=== PATIENT | male | born 1965 | race African-American/Black ===

== ENCOUNTER 2023-12-16 13:48 | Emergency (ER) | payer OTHER, SELFPAY ==
--- NOTE | ~2023-12-16 | XR_ITS ---
EXAMINATION: XR CHEST CLINICAL INFORMATION: Infectious workup, hypotension COMPARISON: None available. TECHNIQUE: 2 views of the chest were obtained. FINDINGS: The cardiac silhouette is normal. There is mild diffuse bronchial wall thickening. There are no areas of consolidation. There are no pleural effusions or pneumothoraces. The bones and soft tissues are unremarkable for the patient's age. XR/XR chest 2V IMPRESSION: Bronchial wall thickening may be infectious/inflammatory in etiology. Electronically signed by: Tatum Lara MD 12/16/2023 07:18 PM EDT RP
--- NOTE | 2023-12-16 14:51 | ECG_ITS ---
Test Reason : chest tightness Blood Pressure : / mmHG Vent. Rate : 112 BPM Atrial Rate : 112 BPM P-R Int : 192 ms QRS Dur : 076 ms QT Int : 312 ms P-R-T Axes : 086 038 076 degrees QTc Int : 425 ms Sinus tachycardia Biatrial enlargement Borderline ECG No previous ECGs available Referred By: Chandler Wilhelm Electronically Signed By:ALTAGRACIA SHERMAN
--- NOTE | 2023-12-16 15:06 | ECG_ITS ---
Test Reason : HTN Blood Pressure : / mmHG Vent. Rate : 107 BPM Atrial Rate : 107 BPM P-R Int : 204 ms QRS Dur : 074 ms QT Int : 332 ms P-R-T Axes : 080 029 066 degrees QTc Int : 443 ms Sinus tachycardia Otherwise normal ECG When compared with ECG of 16-DEC-2023 14:49, No significant change was found Referred By: Reji Orourke Electronically Signed By:ALTAGRACIA SHERMAN
[2023-12-16 15:07] VITALS: BP 148/82; PULSE 110; RESP 18; TEMP 37; BMI 22.8
[2023-12-16 16:02] VITALS: BP 143/80; PULSE 105; RESP 12; TEMP 37; O2SAT 100
[2023-12-16 16:24] LABS: Alanine Aminotransferase 50 U/L (0-40); Albumin Level 4.7 g/dL (3.5-5.0); Alkaline Phosphatase 61 U/L (39-117); Anion Gap 29 (12-20); Aspartate Amino Transferase 67 U/L (5-37); Bilirubin Total 0.9 mg/dL (0.0-1.0); Blood Urea Nitrogen 15 mg/dL (9-16); Calcium 9.8 mg/dL (8.4-10.2); Carbon Dioxide 22 mmol/L (22-29); Chloride 76 mmol/L (96-108); Creatinine Clr Calc Pharmacy 69.9; Estimated Glomerular Filt Rate > 60; Glucose Random 91 mg/dL (60-115); Magnesium 1.3 mg/dL (1.6-2.6); Potassium 3.2 mmol/L (3.3-5.1); Sodium 124 mmol/L (135-145); Total Protein 7.7 g/dL (6.5-8.0); Troponin-I High Sensitivity 3.7 ng/L (<3.5-35.0)
[2023-12-16 16:26] LABS: Appearance Urine Clear; Color Urine Yellow; Glucose Urine UA Negative (Negative); Leukocyte Esterase Urine Negative (Negative); Nitrite Urine Negative (Negative); PH 5.5 (5.0-9.0); Specific Gravity - Urine <= 1.005 (1.005-1.025); Urine Blood Negative (Negative); Urine Ketones 40 mg/dL (Negative); Urine Protein Negative (Neg-Trace)
[2023-12-16 16:43] LABS: Basophils Percent Auto 0.4 % (0-2); Hematocrit 34.9 % (42.0-52.0); Hemoglobin 13.1 g/dl (14.0-18.0); Imm Gran Abs Auto 0.02 X10*3/uL (0.00-0.03); Imm Gran Pct Auto 0.4 % (0.0-0.4); Lymphocytes Absolute Auto 0.2 X10*3/uL (1.2-4.9); Lymphocytes Percent Auto 3.1 % (20-40); MANUAL DIFF FLAG SCAN; Mean Corpuscular HGB Conc 37.5 g/dl (31.0-36.0); Mean Corpuscular Volume 101.2 fL (80.0-98.0); Mean Platelet Volume 8.4 fL (9.4-12.4); Monocytes Absolute Auto 0.3 X10*3/uL (0.1-1.2); Monocytes Percent Auto 5.9 % (2-11); Neutrophils Absolute Auto 4.6 x10*3/uL (2.0-8.3); Neutrophils Percent Auto 90.2 % (45-73); Platelet Count 165 X10*3/uL (160-400); Red Blood Count 3.45 X10*6/uL (4.60-5.80); Red Cell Distribution Width 11.7 % (11.0-16.0); SCAN SMEAR FLAG 1; White Blood Count 5.1 X10*3/uL (4.8-10.8)
[2023-12-16] MEDS: Magnesium Sulfate/H2O 2 GM/50 ML PIGGYBACK IV (16:53)
[2023-12-16 16:57] LABS: Influenza A PCR NEGATIVE (Negative); Influenza B PCR NEGATIVE (Negative); Resp Syncy Virus RNA Qual PCR NEGATIVE (Negative); SARS COV2 PCR INHOUSE NEGATIVE (Negative)
[2023-12-16 17:02] LABS: SLIDE REVIEW VERIFIED
[2023-12-16 17:04] LABS: Erythrocyte Sedimentation Rate 11 MM/HR (0-15)
--- NOTE | 2023-12-16 17:08 | ED_ITS ---
HPI - General Adult General Chief complaint: General Medical Stated complaint: low bp-chest tightness Time Seen by Provider: 12/16/23 16:02 History of Present Illness ED Provider: Sharad HPI narrative: 58-year-old male with past medical history of lung cancer presenting for hypotension. Patient states that he woke up this morning and he felt took his blood pressure and found it to be 70s/50s and he subsequently experienced a sensation of palpitations. He denies chest pain, shortness of breath, diaphoresis, recent illness, fevers, chills, abdominal pain, nausea, vomiting, urinary symptoms. He states he has never experienced this in the past. He denies recent travel and has not had any recent hospitalization. Related Data Allergies Allergy/AdvReac Type Severity Reaction Status Date / Time No Known Allergies Allergy Verified 12/16/23 15:10 Review of Systems 2 Review of Systems: Patient endorses hypotension and palpitation Yes all other systems are reviewed and are negative [facility] Past Medical History Attestation statement: The following information was validated with the patient. [facility] Narrative: Lung cancer Social History Social History Smoked in Last 30 Days: No Use of substances other than those prescribed or required for medical reasons: No Advance Directives: No Advance Directives Information Provided: No Physical Exam ED Vital Signs: Vital Signs - 24 hr 12/16/23 15:07 12/16/23 16:02 12/16/23 18:46 Temperature 98.6 F 98.6 F 98.3 F Pulse Rate 110 H 105 H 98 Respiratory Rate 18 12 16 Blood Pressure 148/82 H 143/80 H 139/75 Pulse Oximetry 100 100 Oxygen Delivery Method Room Air Room Air BMI result Body Mass Index 22.8 Medications Administered Discontinued Medications Generic Name Dose Route Start Last Admin Trade Name Freq PRN Reason Stop Dose Admin Magnesium Sulfate 2 gm in 50 mls @ 25 mls/hr 12/16/23 16:23 12/16/23 18:54 Magnesium Sulfate/H2o IV 12/16/23 18:22 Infused ONCE ONE Infusion Sodium Chloride 1,000 mls @ 999 mls/hr 12/16/23 17:45 12/16/23 19:08 Ns IV 12/16/23 18:45 Infused .Q1H1M WALLY Infusion Potassium Chloride 10 meq in 100 mls @ 100 mls/hr 12/16/23 17:33 12/16/23 19:08 Potassium Chloride/H20 IV 12/16/23 18:32 Infused ONCE ONE Infusion Medical Decision Making Medical Decision Making MDM Narrative: This is a 58-year-old male with past medical history of lung cancer presenting for hypotension and palpitations. I am concerned for the following; electrolyte/metabolic disturbance, arrhythmia, underlying infection -I am also considering PE -less likely ACS -labs and imaging studies ordered -no signs of ischemia seen on EKG -labs notable for normal white count, H&H within normal limits, hyponatremia, hypokalemia, hypomagnesemia, elevated lactate, 1st troponin of 3.7 -I discussed lab results with patient and recommended staying for IV fluids and repletion of potassium and magnesium. Patient was reluctant to staying however eventually agreed. -1L NS ordered and labs repeated with improvement in heart rate, creatinine and sodium -patient threatening to leave multiple times. I explained that his labs have improved however I would like to repeat his troponin as well. Patient declined to any additional lab work and threatened to pull out his IV. I explained to him the risks of leaving without complete workup which he understood however he states that he has been in this hospital for 7 hours and wants to leave. I discharged the patient per his request Lab Data 12/16/23 15:54 12/16/23 20:01 Labs: Lab Results 12/16/23 12/16/23 12/16/23 Range/Units 15:54 16:07 16:32 WBC 5.1 (4.8-10.8) X10*3/uL RBC 3.45 L (4.60-5.80) X10*6/uL Hgb 13.1 L (14.0-18.0) g/dl Hct 34.9 L (42.0-52.0) % MCV 101.2 H (80.0-98.0) fL MCH 38.0 H (27.0-33.0) pg MCHC 37.5 H (31.0-36.0) g/dl RDW 11.7 (11.0-16.0) % Plt Count 165 (160-400) X10*3/uL MPV 8.4 L (9.4-12.4) fL Immature Gran % (Auto) 0.4 (0.0-0.4) % Neut % (Auto) 90.2 H (45-73) % Lymph % (Auto) 3.1 L (20-40) % [place] % (Auto) 5.9 (2-11) % Eos % (Auto) 0.0 (0-4) % Baso % (Auto) 0.4 (0-2) % Lymph # (Auto) 0.2 L (1.2-4.9) X10*3/uL [place] # (Auto) 0.3 (0.1-1.2) X10*3/uL Eos # (Auto) 0.0 (0.0-0.4) X10*3/uL Baso # (Auto) 0.0 (0.0-0.2) X10*3/uL Abs Immat Gran (auto) 0.02 (0.00-0.03) X10*3/uL Absolute Neuts (auto) 4.6 (2.0-8.3) x10*3/uL Absolute Nucleated RBC 0.000 (0.0-0.012) X10*3/uL Nucleated RBC % (auto) 0.0 (0.0-0.2) /100WBC Smear Tech's Comments VERIFIED ESR 11 (0-15) MM/HR Hold Purple Top SEE NOTE Sodium 124 L (135-145) mmol/L Potassium 3.2 L (3.3-5.1) mmol/L Chloride 76 L (96-108) mmol/L Carbon Dioxide 22 (22-29) mmol/L Anion Gap 29 H (12-20) BUN 15 (9-16) mg/dL Creatinine 1.18 (0.5-1.4) mg/dL Estim Creat Clear Calc 69.9 Estimated GFR > 60 Random Glucose 91 (60-115) mg/dL Lactic Acid 3.0 H* (0.5-2.0) mmol/L Lactic Acid F/U @ 2Hr (0.5-2.0) mmol/L Calcium 9.8 (8.4-10.2) mg/dL Phosphorus 3.8 (2.7-4.5) mg/dL Magnesium 1.3 L* (1.6-2.6) mg/dL Total Bilirubin 0.9 (0.0-1.0) mg/dL AST 67 H (5-37) U/L ALT 50 H (0-40) U/L Alkaline Phosphatase 61 (39-117) U/L Troponin I High Sens 3.7 (<3.5-35.0) ng/L B-Natriuretic Peptide 50 (<100) pg/mL Total Protein 7.7 (6.5-8.0) g/dL Albumin 4.7 (3.5-5.0) g/dL Urine Color Yellow Urine Appearance Clear Urine pH 5.5 (5.0-9.0) Ur Specific [place] <= 1.005 (1.005-1.025) Urine Protein Negative (Neg-Trace) mg/dL Urine Glucose (UA) Negative (Negative) mg/dL Urine Ketones 40 (Negative) mg/dL Urine Blood Negative (Negative) Urine Nitrite Negative (Negative) Ur Leukocyte Esterase Negative (Negative) Influenza Type A (PCR) NEGATIVE (Negative) Influenza Type B (PCR) NEGATIVE (Negative) RSV RNA Qual (PCR) NEGATIVE (Negative) SARS-CoV-2 RNA (RT-PCR) NEGATIVE (Negative) 12/16/23 Range/Units 20:01 WBC (4.8-10.8) X10*3/uL RBC (4.60-5.80) X10*6/uL Hgb (14.0-18.0) g/dl Hct (42.0-52.0) % MCV (80.0-98.0) fL MCH (27.0-33.0) pg MCHC (31.0-36.0) g/dl RDW (11.0-16.0) % Plt Count (160-400) X10*3/uL MPV (9.4-12.4) fL Immature Gran % (Auto) (0.0-0.4) % Neut % (Auto) (45-73) % Lymph % (Auto) (20-40) % [place] % (Auto) (2-11) % Eos % (Auto) (0-4) % Baso % (Auto) (0-2) % Lymph # (Auto) (1.2-4.9) X10*3/uL [place] # (Auto) (0.1-1.2) X10*3/uL Eos # (Auto) (0.0-0.4) X10*3/uL Baso # (Auto) (0.0-0.2) X10*3/uL Abs Immat Gran (auto) (0.00-0.03) X10*3/uL Absolute Neuts (auto) (2.0-8.3) x10*3/uL Absolute Nucleated RBC (0.0-0.012) X10*3/uL Nucleated RBC % (auto) (0.0-0.2) /100WBC Smear Tech's Comments ESR (0-15) MM/HR Hold Purple Top Sodium 127 L (135-145) mmol/L Potassium 3.6 (3.3-5.1) mmol/L Chloride 81 L (96-108) mmol/L Carbon Dioxide 18 L (22-29) mmol/L Anion Gap 32 H (12-20) BUN 12 (9-16) mg/dL Creatinine 0.94 (0.5-1.4) mg/dL Estim Creat Clear Calc 87.8 Estimated GFR > 60 Random Glucose 63 (60-115) mg/dL Lactic Acid (0.5-2.0) mmol/L Lactic Acid F/U @ 2Hr 2.8 H* (0.5-2.0) mmol/L Calcium 9.8 (8.4-10.2) mg/dL Phosphorus (2.7-4.5) mg/dL Magnesium (1.6-2.6) mg/dL Total Bilirubin (0.0-1.0) mg/dL AST (5-37) U/L ALT (0-40) U/L Alkaline Phosphatase (39-117) U/L Troponin I High Sens (<3.5-35.0) ng/L B-Natriuretic Peptide (<100) pg/mL Total Protein (6.5-8.0) g/dL Albumin (3.5-5.0) g/dL Urine Color Urine Appearance Urine pH (5.0-9.0) Ur Specific [place] (1.005-1.025) Urine Protein (Neg-Trace) mg/dL Urine Glucose (UA) (Negative) mg/dL Urine Ketones (Negative) mg/dL Urine Blood (Negative) Urine Nitrite (Negative) Ur Leukocyte Esterase (Negative) Influenza Type A (PCR) (Negative) Influenza Type B (PCR) (Negative) RSV RNA Qual (PCR) (Negative) SARS-CoV-2 RNA (RT-PCR) (Negative) Discharge Plan Discharge Clinical Impression: Acute hyponatremia, LIZ (acute kidney injury), Hypomagnesemia Patient Disposition: Home, Self-Care Additional Instructions: Please follow up with your primary care provider in the next 24-48 hours as you should have repeat lab work. Please make sure to remain well hydrated Please return to the emergency department if you develop any new or worsening symptoms Print Language: [place]se
--- NOTE | 2023-12-16 17:25 | PC.NURSE ---
Pt presents to ED from home, reports he took his BP this morning (checks it daily and also felt off ) and found it to be low (70s systolic). [facility] for [facility]. Denies any pain, SOB, N/V/D, fevers, recent illnesses. 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 Alert and oriented, breathing even and unlabored, skin warm and dry. Pt does report daily alcohol use at night, hard liquor, multiple drinks, but no hx of alcohol withdrawals.
[2023-12-16 17:31] LABS: B Type Natriuretic Peptide 50 pg/mL (<100)
--- NOTE | 2023-12-16 17:51 | PC.NURSE ---
Pt telling tech and RN that he wants to leave, RN tried to explain importance of treatment and current condition. Pt still adamant. Provider at bedside speaking to pt
[2023-12-16] MEDS: 0.9 % Sodium Chloride 1,000 ML 999 ML IV (17:55)
[2023-12-16] MEDS: Potassium Chloride/H20 10 MEQ/100 ML PIGGYBACK 100 MEQ IV (17:55)
--- NOTE | 2023-12-16 18:02 | PC.NURSE ---
Pt agreeable to get IV fluids and meds.
[2023-12-16 18:35] LABS: Reflex Lactate? Lactic Acid Added
[2023-12-16 18:46] VITALS: BP 139/75; PULSE 98; RESP 16; TEMP 36.8; O2SAT 100
--- NOTE | 2023-12-16 19:06 | PC.NURSE ---
This RN assumed pt care @ 1900. Pt a&ox4, no signs of distress. Pt denies pain at this time. Plan of care ongoing.
--- NOTE | 2023-12-16 19:07 | PC.NURSE ---
This RN walked into pts room and fluids complete. Plan of care ongoing.
[2023-12-16 19:25] LABS: Phosphorus 3.8 mg/dL (2.7-4.5)
--- NOTE | 2023-12-16 20:00 | PC.NURSE ---
Per provider turned down 02 to see if pt can be weened off, provider believes pt not on 02 at baseline Pt with xray and 02 dropped to 74% Pt suctioned and 02 turned back on 2l n/c, pt now sat @ 96% Pt reports he is on 02 at baseline Plan of care ongoing.
[2023-12-16 20:26] LABS: ~Lactic Acid-LAB USE ONLY 2.8 mmol/L (0.5-2.0)
[2023-12-16 20:27] LABS: Anion Gap 32 (12-20); Blood Urea Nitrogen 12 mg/dL (9-16); Calcium 9.8 mg/dL (8.4-10.2); Carbon Dioxide 18 mmol/L (22-29); Chloride 81 mmol/L (96-108); Creatinine Clr Calc Pharmacy 87.8; Estimated Glomerular Filt Rate > 60; Glucose Random 63 mg/dL (60-115); Potassium 3.6 mmol/L (3.3-5.1); Sodium 127 mmol/L (135-145)
--- NOTE | 2023-12-16 20:44 | PC.NURSE ---
Per provider would like another trop done and pt does not have to wait for results. This RN called lab and spoke with Tera regarding trop being added to previous labs sent down, per tera that can be done. Provider Jono advised. Plan of care ongoing.
[2023-12-16 20:55] VITALS: BP 139/90; PULSE 121; RESP 20; TEMP 37.1; O2SAT 98
--- NOTE | 2023-12-16 20:57 | PC.NURSE ---
Pt agitated and states I'm ready to pull this fucking IV out of my arm. This RN redirected pt and advised he was being d/c shortly Plan of care ongoing.
[2023-12-16 21:05] LABS: Troponin-I High Sensitivity 5.4 ng/L (<3.5-35.0)
[2023-12-16 21:08] VITALS: BP 139/90; PULSE 121; RESP 20; TEMP 37.1; O2SAT 98
[2023-12-16 22:07] LABS: Reflex Lactate? 2 Y
== END 2023-12-16 21:12 | disposition home or self-care (01) ==
PROVIDERS: Physician Assistant Medical; Emergency Provider Student in an Organized Health Care Education/Training Program; PCP Physician Assistant Medical
DX: I95.9 Hypotension, unspecified (principal); E87.1 Hypo-osmolality and hyponatremia; E83.42 Hypomagnesemia; N17.9 Acute kidney failure, unspecified; Z85.118 Personal history of other malignant neoplasm of bronchus and lung; Z03.818 Encounter for observation for suspected exposure to other biological agents ruled out
CPT/HCPCS: 0241U; 36415; 71046; 80048; 80053; 81003; 83605; 83735; 83880; 84100; 84484; 85025; 85652; 93005; 96365; 96366; 96375; 99284; 99285; J3475; J3480

== ENCOUNTER → 2023-12-16 14:51 | Outpatient (BNV) | payer OTHER, SELFPAY | PROVIDERS: Emergency Provider Student in an Organized Health Care Education/Training Program; PCP Physician Assistant Medical; Visit Provider Internal Medicine | DX: R00.0 Tachycardia, unspecified (principal) | CPT/HCPCS: 93010 ==

== ENCOUNTER 2024-07-17 16:56 | Emergency (ER) | payer OTHER, SELFPAY ==
--- NOTE | 2024-07-17 16:58 | ED_ITS ---
HPI - General Adult General Chief complaint: General Medical Stated complaint: wants to check vitals his BP machine doesnt work Time Seen by Provider: 07/17/24 17:12 History of Present Illness ED Provider: Evert Hart MD HPI narrative: 59-year-old male who presents for subjective concern of elevated blood pressures took at home 180 systolic also notes alcohol use disorder does not report that he is here for help with this or concerned about withdrawal or detox. No abdominal pain Related Data Previous Rx's ?Medication ?Instructions ?Recorded magnesium oxide 500 mg capsule 500 mg PO BID 4 days #8 caps 07/17/24 Allergies Allergy/AdvReac Type Severity Reaction Status Date / Time No Known Allergies Allergy Verified 07/17/24 17:05 [facility] Social History Social History Alcohol intake: current Alcohol intake frequency: a few times a week Alcohol type: beer and hard liquor Smoked in Last 30 Days: No Use of substances other than those prescribed or required for medical reasons: No Advance Directives: No Advance Directives Information Provided: Yes Do you have a plan to hurt others: No Plan Physical Exam ED Vital Signs: Vital Signs - 24 hr 07/17/24 17:01 07/17/24 17:25 Temperature 98.0 F 99.2 F Pulse Rate 129 H 109 H Respiratory Rate 18 17 Blood Pressure 186/111 H 167/99 H Pulse Oximetry 99 98 Oxygen Delivery Method Room Air Room Air BMI result Body Mass Index 22.7 Const Other: EXAM: Gen: Alert, awake, well appearing, well hydrated. Slightly anxious Head: Atraumatic Eyes: Anicteric, Normal conjunctiva. ENT: Moist mucosa, no pallor. ? Neck: Supple. Respiratory: Breathing comfortably, No distress.Clear to auscultation bilaterally, symmetric chest expansion, No wheeze, rales, ronchi. Cardiovascular: Slightly rapid and rhythm. No murmurs or rub. Well perfused periphery, warm extremities. No edema. ? Abdominal: No FOCAL TENDERNESS. Soft, no objective distension. No palpable masses or obvious organomegaly. ?No guarding, no rebound tenderness or other peritoneal findings. : No flank tenderness. Neuro: Alert. Gross movement of all extremities intact. ? Psych: Calm. Cooperative. MSK: No grossly visible deformity. Vital signs: See flowsheet Course Course Course Narrative: RME performed by Laura Blank PA-C. Patient is a 59 year old assigned male at presenting to the emergency department with elevated blood pressure and alcohol use. Patient states that he has been off of his amlodipine for a year and he plans on seeing his doctor tomorrow to talk about it. Patient states that he has been drinking a decent amount of alcohol every day and tried to ween himself down but has come back up. Detailed physical exam and review of systems are deferred to the humanities instructor. EKG and labs ordered. Patient placed back in the waiting room pending room availability and results. Medications Administered Discontinued Medications Generic Name Dose Route Start Last Admin Trade Name Freq PRN Reason Stop Dose Admin Magnesium Sulfate 4 gm in 50 mls @ 150 mls/hr 07/17/24 18:08 07/17/24 18:50 Magnesium Sulfate/H2o IV 07/17/24 18:27 Infused ONCE ONE Infusion Sodium Chloride 1,000 mls @ 999 mls/hr 07/17/24 18:15 07/17/24 19:42 Ns IV 07/17/24 19:15 Infused .Q1H1M WALLY Infusion Lorazepam 2 mg 07/17/24 17:25 07/17/24 18:03 Lorazepam 1 Mg Tablet PO 07/17/24 17:26 Not Given ONCE ONE Magnesium Oxide 800 mg 07/17/24 18:08 07/17/24 18:31 Magnesium Oxide 400 Mg Tablet PO 07/17/24 18:09 800 mg ONCE ONE Administration Thiamine HCl 100 mg 07/17/24 17:25 07/17/24 18:03 Thiamine Hcl 100 Mg Tablet PO 07/17/24 17:26 Not Given ONCE ONE Medical Decision Making Medical Decision Making MDM Narrative: 59-year-old male ETOH use disorder previous lung cancer in remission Patient is not requesting inpatient detox he prefers to go himself tomorrow to [place] through the [facility] for detox. Presented for BP elevation 180 systolic Lab Data 07/17/24 17:23 07/17/24 17:23 Labs: Lab Results 07/17/24 07/17/24 Range/Units 17:23 17:24 WBC 4.8 (4.8-10.8) X10*3/uL RBC 3.48 L (4.60-5.80) X10*6/uL Hgb 12.9 L (14.0-18.0) g/dl Hct 34.9 L (42.0-52.0) % MCV 100.3 H (80.0-98.0) fL MCH 37.1 H (27.0-33.0) pg MCHC 37.0 H (31.0-36.0) g/dl RDW 11.5 (11.0-16.0) % Plt Count 172 (160-400) X10*3/uL MPV 8.7 L (9.4-12.4) fL Immature Gran % (Auto) 0.4 (0.0-0.4) % Neut % (Auto) 73.1 H (45-73) % Lymph % (Auto) 13.5 L (20-40) % [place] % (Auto) 12.2 H (2-11) % Eos % (Auto) 0.2 (0-4) % Baso % (Auto) 0.6 (0-2) % Lymph # (Auto) 0.7 L (1.2-4.9) X10*3/uL [place] # (Auto) 0.6 (0.1-1.2) X10*3/uL Eos # (Auto) 0.0 (0.0-0.4) X10*3/uL Baso # (Auto) 0.0 (0.0-0.2) X10*3/uL Abs Immat Gran (auto) 0.02 (0.00-0.03) X10*3/uL Absolute Neuts (auto) 3.5 (2.0-8.3) x10*3/uL Absolute Nucleated RBC 0.000 (0.0-0.012) X10*3/uL Nucleated RBC % (auto) 0.0 (0.0-0.2) /100WBC Sodium 128 L (135-145) mmol/L Potassium 3.3 (3.3-5.1) mmol/L Chloride 87 L (96-108) mmol/L Carbon Dioxide 24 (22-29) mmol/L Anion Gap 20 (12-20) BUN 10 (9-16) mg/dL Creatinine 0.78 (0.5-1.4) mg/dL Estim Creat Clear Calc 106.7 Estimated GFR > 60 Random Glucose 117 H (60-115) mg/dL Calcium 10.4 H D (8.4-10.2) mg/dL Magnesium 1.1 L* (1.6-2.6) mg/dL Total Bilirubin 1.0 (0.0-1.0) mg/dL AST 72 H (5-37) U/L ALT 50 H (0-40) U/L Alkaline Phosphatase 62 (39-117) U/L Troponin I High Sens < 2.7 D (<3.5-35.0) ng/L Total Protein 8.3 H (6.5-8.0) g/dL Albumin 5.1 H (3.5-5.0) g/dL Urine Color Yellow Urine Appearance Clear Urine pH 7.5 (5.0-9.0) Ur Specific [place] <= 1.005 (1.005-1.025) Urine Protein 30 (1+) H (Neg-Trace) mg/dL Urine Glucose (UA) Negative (Negative) mg/dL Urine Ketones Trace (Negative) mg/dL Urine Blood Trace H (Negative) Urine Nitrite Negative (Negative) Ur Leukocyte Esterase Negative (Negative) Urine RBC 0-2 (0-2) /HPF Urine WBC 0-5 (0-5) /HPF Ur Squamous Epith Cells 0-2 (0-2) /HPF Urine Bacteria None Seen (None Seen) Hyaline Casts 0-2 (0-2) /LPF Urine Opiates Screen Not Detected (Not Detect) Ur Buprenorphine Scrn Not Detected (Not Detect) ng/mL Ur Oxycodone Screen Not Detected (Not Detect) ng/mL Urine Methadone Screen Not Detected (Not Detect) ng/mL Urine Fentanyl Screen Not Detected (Not Detect) Ur Barbiturates Screen Not Detected (Not Detect) Ur Phencyclidine Scrn Not Detected (Not Detect) Ur Amphetamines Screen Not Detected (Not Detect) U Benzodiazepines Scrn Not Detected (Not Detect) Urine Cocaine Screen Not Detected (Not Detect) U Marijuana (THC) Screen Not Detected (Not Detect) Ethyl Alcohol < 10 mg/dL Discharge Plan Discharge Clinical Impression: Hypertension Patient Disposition: Home, Self-Care Instructions: Hyponatremia (ED), Chronic Hypertension (ED), Hypomagnesemia (ED) Additional Instructions: _ DISCHARGE DIAGNOSES: High blood pressure without dangerous symptoms or findings on blood work Alcohol use disorder HISTORY OF PRESENTATION: Elevated blood pressure at home, attempts at alcohol cessation EMERGENCY DEPARTMENT COURSE,TESTS, TREATMENTS: While in the ED today you had oral benzodiazepine Ativan 2 mg orally thiamine vitamin intravenous fluids and basic lab work done this was reassuring DISCHARGE MEDICATIONS: ?[We have made no changes to your regular medication regimen] FOLLOW-UP: ?Call your primary or general physician soon as possible to discuss your symptoms, your ED visit and to discuss follow up plans Call your primary doctor as you discussed your plan was [facility] INSTRUCTIONS ?& RETURN PRECAUTIONS: If any symptoms change first call your primary physician, if it is after-hours your primary doctors office should have a provider economic historian you can speak with. If the symptoms are severe or very concerning to you then call 911 or return to the ED. Return for severe withdrawal symptoms as we discussed, severe headache or severe chest pain or difficulty breathing Evert Hart MD Emergency Physician [facility] Prescriptions: New magnesium oxide 500 mg capsule 500 mg PO BID 4 Days Qty: 8 0RF Interventions: ED Discharge Assessment Last Done: 07/17/24 19:57 Discharge Date/Time: 07/17/24 19:58 Print Language: [place]bourgish
[2024-07-17 17:01] VITALS: BP 186/111; PULSE 129; RESP 18; TEMP 36.7; O2SAT 99; BMI 22.7
--- NOTE | 2024-07-17 17:04 | ECG_ITS ---
Test Reason : ELEVATED hr Blood Pressure : */* mmHG Vent. Rate : 112 BPM Atrial Rate : 112 BPM P-R Int : 180 ms QRS Dur : 76 ms QT Int : 320 ms P-R-T Axes : 81 13 76 degrees QTcB Int : 436 ms Sinus tachycardia Possible Left atrial enlargement Borderline ECG When compared with ECG of 16-Dec-2023 15:06, No significant change was found Referred By: Laura Blank Electronically Signed By: ALTAGRACIA SHERMAN
[2024-07-17 17:25] VITALS: BP 167/99; PULSE 109; RESP 17; TEMP 37.3; O2SAT 98
[2024-07-17 17:29] LABS: MANUAL DIFF FLAG NO
[2024-07-17 17:32] LABS: Appearance Urine Clear; Color Urine Yellow; Glucose Urine UA Negative (Negative); Leukocyte Esterase Urine Negative (Negative); Nitrite Urine Negative (Negative); PH 7.5 (5.0-9.0); Specific Gravity - Urine <= 1.005 (1.005-1.025); UMIC TRIGGER UACC YES; Urine Blood Trace (Negative); Urine Ketones Trace mg/dL (Negative); Urine Protein 30 (1+) mg/dL (Neg-Trace)
[2024-07-17 17:36] LABS: Bacteria Urine None Seen (None Seen); Hyaline Casts Urine 0-2 /LPF (0-2); RBC Urine 0-2 /HPF (0-2); Squamous Epithelial Cell Urine 0-2 /HPF (0-2); WBC Urine 0-5 /HPF (0-5)
[2024-07-17 17:41] LABS: Amphetamine Screen Urine Not Detected (Not Detect); Barbiturates, Urine Not Detected (Not Detect); Benzodiazepines Screen Urine Not Detected (Not Detect); Buprenorphine Scr Not Detected (Not Detect); Cannabinoid Screen Urine Not Detected (Not Detect); Cocaine Screen Urine Not Detected (Not Detect); Fentanyl, urine Not Detected (Not Detect); Methadone Screen, Urine Not Detected (Not Detect); Opiate Screen Urine Not Detected (Not Detect); Oxycodone Screen Urine Not Detected (Not Detect); Phencyclidine Screen Urine Not Detected (Not Detect)
[2024-07-17 17:48] LABS: Basophils Percent Auto 0.6 % (0-2); Eosinophils Percent Auto 0.2 % (0-4); Hematocrit 34.9 % (42.0-52.0); Hemoglobin 12.9 g/dl (14.0-18.0); Imm Gran Abs Auto 0.02 X10*3/uL (0.00-0.03); Imm Gran Pct Auto 0.4 % (0.0-0.4); Lymphocytes Absolute Auto 0.7 X10*3/uL (1.2-4.9); Lymphocytes Percent Auto 13.5 % (20-40); Mean Corpuscular Hemoglobin 37.1 pg (27.0-33.0); Mean Corpuscular Volume 100.3 fL (80.0-98.0); Mean Platelet Volume 8.7 fL (9.4-12.4); Monocytes Absolute Auto 0.6 X10*3/uL (0.1-1.2); Monocytes Percent Auto 12.2 % (2-11); Neutrophils Absolute Auto 3.5 x10*3/uL (2.0-8.3); Neutrophils Percent Auto 73.1 % (45-73); Platelet Count 172 X10*3/uL (160-400); Red Blood Count 3.48 X10*6/uL (4.60-5.80); Red Cell Distribution Width 11.5 % (11.0-16.0); White Blood Count 4.8 X10*3/uL (4.8-10.8)
[2024-07-17 17:59] LABS: Troponin-I High Sensitivity < 2.7 ng/L (<3.5-35.0)
[2024-07-17 18:07] LABS: Magnesium 1.1 mg/dL (1.6-2.6)
[2024-07-17 18:08] LABS: Alanine Aminotransferase 50 U/L (0-40); Albumin Level 5.1 g/dL (3.5-5.0); Alkaline Phosphatase 62 U/L (39-117); Anion Gap 20 (12-20); Aspartate Amino Transferase 72 U/L (5-37); Blood Urea Nitrogen 10 mg/dL (9-16); Calcium 10.4 mg/dL (8.4-10.2); Carbon Dioxide 24 mmol/L (22-29); Chloride 87 mmol/L (96-108); Creatinine Clr Calc Pharmacy 106.7; Estimated Glomerular Filt Rate > 60; Ethanol < 10 mg/dL; Glucose Random 117 mg/dL (60-115); Potassium 3.3 mmol/L (3.3-5.1); Sodium 128 mmol/L (135-145); Total Protein 8.3 g/dL (6.5-8.0)
[2024-07-17] MEDS: Magnesium Oxide 400 MG TABLET 800 MG PO (18:31)
[2024-07-17] MEDS: 0.9 % Sodium Chloride 1,000 ML 999 ML IV (18:31)
[2024-07-17] MEDS: Magnesium Sulfate/H2O 4 GM/50 ML PIGGYBACK IV (18:32)
[2024-07-17 18:35] VITALS: BP 170/97; PULSE 105; RESP 18; O2SAT 95
[2024-07-17 19:57] VITALS: BP 170/97; PULSE 105; RESP 18; TEMP 36.9; O2SAT 95
== END 2024-07-17 19:58 | disposition home or self-care (01) ==
PROVIDERS: Physician Assistant Medical; Emergency Provider Emergency Medicine; PCP Student in an Organized Health Care Education/Training Program
DX: I10 Essential (primary) hypertension (principal); F10.90 Alcohol use, unspecified, uncomplicated; Z85.118 Personal history of other malignant neoplasm of bronchus and lung
CPT/HCPCS: 36415; 80053; 80307; 81001; 83735; 84484; 85025; 93005; 96361; 96374; 99284; 99285; J3475

== ENCOUNTER → 2024-07-17 17:04 | Outpatient (BNV) | payer OTHER, SELFPAY | PROVIDERS: Emergency Provider Emergency Medicine; PCP Student in an Organized Health Care Education/Training Program; Visit Provider Internal Medicine | DX: R00.0 Tachycardia, unspecified (principal) | CPT/HCPCS: 93010 ==